=== PATIENT | female | born 1985 | race Caucasian/White ===

== ENCOUNTER 2021-10-16 18:03 | Emergency (ER) | payer BC ==
[2021-10-16] MEDS ORDERED: Sodium Chloride 0.9% 10 ML Syringe FLUSH PRN (18:53)
== END 2021-10-16 20:25 | disposition home or self-care (01) ==
LOC: JD.ED 18:03
DX: E87.6 Hypokalemia (principal); Z86.16 Personal history of COVID-19
CPT/HCPCS: 36415; 80048; 99284

== ENCOUNTER 2021-10-28 14:58 | Emergency (ER) | payer BC ==
[2021-10-28] MEDS ORDERED: Acetaminophen/HYDROcodone 325-5 MG Tab PO ONE (15:55)
[2021-10-28] MEDS ORDERED: Amoxicillin 500 MG Cap PO ONE (15:55)
== END 2021-10-28 16:25 | disposition home or self-care (01) ==
LOC: JD.ED 14:58
DX: S02.5XXB Fracture of tooth (traumatic), initial encounter for open fracture (principal); S00.83XA Contusion of other part of head, initial encounter; Z86.16 Personal history of COVID-19; Z79.899 Other long term (current) drug therapy; W01.0XXA Fall on same level from slipping, tripping and stumbling without subsequent striking against object, initial encounter
CPT/HCPCS: 99283; A9270

== ENCOUNTER 2022-10-01 19:55 | Emergency (ER) | payer BC ==
[2022-10-01] MEDS ORDERED: Potassium Chloride 20 MEQ Tab.ER PO ONE (21:32)
[2022-10-01] MEDS ORDERED: Sodium Chloride 0.9% 1,000 ML IV SCH (22:30)
[2022-10-01] MEDS: Potassium Chloride 10 MEQ in Premix Bag 1 BAG IV SCH ×2 (22:31→23:42)
[2022-10-01] MEDS ORDERED: cefTRIAXone 2 GM in Sodium Chloride 0.9% 100 ML IV ONE (22:53)
[2022-10-02] MEDS: Potassium Chloride 10 MEQ in Premix Bag 1 BAG IV SCH (00:39)
== END 2022-10-02 00:48 ==
LOC: JD.ED 19:55
DX: K70.11 Alcoholic hepatitis with ascites (principal); E87.1 Hypo-osmolality and hyponatremia; E87.6 Hypokalemia; Z86.16 Personal history of COVID-19; Z87.891 Personal history of nicotine dependence
CPT/HCPCS: 36415; 71045; 80053; 81001; 82140; 83605; 83690; 83735; 83930; 85025; 86140; 87040; 93005; 96365; 96366; 96368; 99285; A9270; J0696; J3480; J3490; J7030

== ENCOUNTER 2023-08-19 14:57 | Emergency (ER) | payer BC ==
[2023-08-19 16:37] LABS: APPEARANCE,URINE CLEAR (Clear); BILIRUBIN,URINE NEGATIVE (Negative); COLOR,URINE YELLOW (Yellow); GLUCOSE,URINE NEGATIVE (Negative); KETONES,URINE NEGATIVE (Negative); LEUKOCYTE ESTERASE,URINE NEGATIVE (Negative); NITRITE,URINE NEGATIVE (Negative); OCCULT BLOOD,URINE NEGATIVE (Negative); PROTEIN,URINE NEGATIVE (Negative); UROBILINOGEN,URINE 0.2 (0.2-1.0)
[2023-08-19 16:55] LABS: BACTERIA,URINE FEW /hpf (FEW); MUCUS,URINE FEW /hpf (FEW); RBC,URINE 0-5 /hpf (0-5); SQUAMOUS EPITHELIAL CELLS,UR 0-5 /hpf (0-5); WBC,URINE 0-5 /hpf (0-5)
== END 2023-08-19 17:45 | disposition home or self-care (01) ==
LOC: JD.ED 14:57
DX: S20.211A Contusion of right front wall of thorax, initial encounter (principal); Z86.19 Personal history of other infectious and parasitic diseases; Z86.16 Personal history of COVID-19; Z79.899 Other long term (current) drug therapy; W18.49XA Other slipping, tripping and stumbling without falling, initial encounter; Y93.E1 Activity, personal bathing and showering
CPT/HCPCS: 71101-26-RT; 71101-RT; 81001; 99282; 99283

== ENCOUNTER 2024-03-13 16:36 | Emergency (ER) | payer BC ==
[2024-03-13] MEDS ORDERED: Sodium Chloride 0.9% 10 ML Syringe FLUSH PRN (16:55)
[2024-03-13 17:08] LABS: BASOPHILS ABSOLUTE AUTO 0.1 K/mm3 (0.0-0.2); BASOPHILS PERCENT AUTO 0.3 % (0.0-1.0); EOSINOPHILS ABSOLUTE AUTO 0.3 K/mm3 (0.0-0.4); EOSINOPHILS PERCENT AUTO 1.4 % (0.0-6.0); HEMATOCRIT 38.4 % (37.0-47.0); HEMOGLOBIN 12.2 gm/dl (12.0-16.0); IMMATURE GRAN ABSOLUTE AUTO 0.14 K/mm3 (0.00-0.05); IMMATURE GRAN PERCENT AUTO 0.6 % (0.0-0.4); LYMPHOCYTES ABSOLUTE AUTO 2.3 K/mm3 (1.0-4.8); LYMPHOCYTES PERCENT AUTO 9.9 % (24.0-44.0); MEAN CORPUSCULAR HEMOGLOBIN 33.1 pg (28.0-32.0); MEAN CORPUSCULAR HGB CONC 31.8 g/dl (32.0-36.0); MEAN CORPUSCULAR VOLUME 104.1 fl (83.0-99.0); MEAN PLATELET VOLUME 9.6 fl (9.4-12.3); MONOCYTES ABSOLUTE AUTO 2.3 K/mm3 (0.0-0.8); NEUTROPHILS ABSOLUTE AUTO 17.8 K/mm3 (1.8-7.7); NEUTROPHILS PERCENT AUTO 77.8 % (41.0-71.0); PLATELET COUNT,PLT 409 K/mm3 (150-400); RED BLOOD CELL COUNT 3.69 M/mm3 (4.10-5.30); WHITE BLOOD CELL COUNT,WBC 22.88 K/mm3 (3.9-11.3)
[2024-03-13 17:21] LABS: INR 1.43; PROTHROMBIN TIME 14.8 SECONDS (9.7-12.0)
[2024-03-13 17:26] LABS: LACTIC ACID 1.9 mmol/L (0.4-2.0)
[2024-03-13 17:33] LABS: A/G RATIO 0.4 (1-2); ALANINE AMINOTRANSFERASE,ALT 31 U/L (14-59); ALBUMIN 1.8 g/dl (3.4-5.0); ALKALINE PHOSPHATASE 365 U/L (46-116); ANION GAP 14.4 (5-15); ASPARTATE AMNIOTRANSFERASE,AST 185 U/L (15-37); BILIRUBIN TOTAL 6.6 mg/dL (0.2-1.0); BLOOD UREA NITROGEN,BUN 2 mg/dL (7-18); BUN/CREATININE RATIO 2.9 (14-18); C-REACTIVE PROTEIN 5.66 mg/dL (<0.30); CALCIUM 8.6 mg/dL (8.5-10.1); CARBON DIOXIDE,CO2 23 mEq/L (21-32); CHLORIDE,CL 98 mEq/L (98-107); ESTIMATED GFR 113 mL/min (>60); ETHANOL BLOOD MEDICAL 0.03 gm% (0.00); GLUCOSE RANDOM 107 mg/dL (70-99); LIPASE 19 U/L (16-77); MAGNESIUM 1.7 mg/dL (1.8-2.4); PROTEIN TOTAL,TP 6.2 g/dl (6.4-8.2); SODIUM,NA 132 mEq/L (136-145)
[2024-03-13 17:37] LABS: HCG QUANTITATIVE < 1.0 mIU/mL
[2024-03-13 17:38] LABS: CREATININE 0.7 mg/dL (0.55-1.02); POTASSIUM,K 3.4 mEq/L (3.5-5.1)
[2024-03-13] MEDS: Iopamidol 612 MG/ML 100 ML Bottle IVPUSH ONE (18:44)
[2024-03-13 19:46] LABS: APPEARANCE,URINE CLEAR (Clear); BILIRUBIN,URINE 2+ (Negative); COLOR,URINE AMBER (Yellow); GLUCOSE,URINE NEGATIVE (Negative); KETONES,URINE TRACE (Negative); LEUKOCYTE ESTERASE,URINE NEGATIVE (Negative); NITRITE,URINE NEGATIVE (Negative); OCCULT BLOOD,URINE TRACE-INTACT (Negative); PH,URINE 6.5 (5.0-8.0); PROTEIN,URINE 1+ (Negative); UROBILINOGEN,URINE 0.2 (0.2-1.0)
[2024-03-13 19:55] LABS: BACTERIA,URINE FEW /hpf (FEW); BARBITURATE SCREEN,URINE NEGATIVE (CUTOFF=200); BENZODIAZEPINES SCREEN,URINE PRESUMPTIVE POSITIVE (CUTOFF=150); BUPRENORPHINE SCREEN,URINE NEGATIVE (CUTOFF=10); METHADONE SCREEN, URINE NEGATIVE (CUTOFF=200); METHAMPHETAMINES SCREEN, URINE NEGATIVE (CUTOFF=500); MUCUS,URINE NOT SEEN /hpf (FEW); OXYCODONE SCREEN,URINE NEGATIVE (CUT0FF=100); RBC,URINE 0-5 /hpf (0-5); SQUAMOUS EPITHELIAL CELLS,UR 30-40 /hpf (0-5); THC SCREEN,URINE 20 NG/ML PRESUMPTIVE POSITIVE (CUTOFF=50); WBC,URINE 0-5 /hpf (0-5)
[2024-03-13 19:57] LABS: AMPHETAMINES SCREEN, URINE NEGATIVE (CUTOFF=500)
== END 2024-03-13 19:50 | disposition home or self-care (01) ==
LOC: JD.ED 16:36
DX: K70.31 Alcoholic cirrhosis of liver with ascites (principal); D73.2 Chronic congestive splenomegaly; F10.90 Alcohol use, unspecified, uncomplicated; Z87.891 Personal history of nicotine dependence; Z79.899 Other long term (current) drug therapy
CPT/HCPCS: 36415; 74177; 76700; 80053; 80306; 80307; 81001; 82140; 82248; 83605; 83690; 83735; 83880; 84702; 85025; 85610; 86140; 93005; 99284; Q9967

== ENCOUNTER 2024-03-18 18:16 | Emergency (ER) | payer BC ==
[2024-03-18 19:50] LABS: BASOPHILS PERCENT AUTO 0.2 % (0.0-1.0); EOSINOPHILS ABSOLUTE AUTO 0.2 K/mm3 (0.0-0.4); HEMATOCRIT 33.3 % (37.0-47.0); HEMOGLOBIN 10.6 gm/dl (12.0-16.0); IMMATURE GRAN ABSOLUTE AUTO 0.13 K/mm3 (0.00-0.05); IMMATURE GRAN PERCENT AUTO 0.8 % (0.0-0.4); LYMPHOCYTES ABSOLUTE AUTO 1.7 K/mm3 (1.0-4.8); LYMPHOCYTES PERCENT AUTO 10.3 % (24.0-44.0); MEAN CORPUSCULAR HEMOGLOBIN 32.9 pg (28.0-32.0); MEAN CORPUSCULAR HGB CONC 31.8 g/dl (32.0-36.0); MEAN CORPUSCULAR VOLUME 103.4 fl (83.0-99.0); MEAN PLATELET VOLUME 9.9 fl (9.4-12.3); MONOCYTES ABSOLUTE AUTO 1.9 K/mm3 (0.0-0.8); MONOCYTES PERCENT AUTO 11.5 % (0.0-8.0); NEUTROPHILS ABSOLUTE AUTO 12.7 K/mm3 (1.8-7.7); NEUTROPHILS PERCENT AUTO 76.2 % (41.0-71.0); PLATELET COUNT,PLT 248 K/mm3 (150-400); RED BLOOD CELL COUNT 3.22 M/mm3 (4.10-5.30); WHITE BLOOD CELL COUNT,WBC 16.66 K/mm3 (3.9-11.3)
[2024-03-18 20:10] LABS: INR 1.43; PROTHROMBIN TIME 14.8 SECONDS (9.7-12.0)
[2024-03-18 20:11] LABS: PTT,PARTIAL THROMBOPLSTIN TIME 28.8 SECONDS (21.7-31.4)
[2024-03-18 20:13] LABS: A/G RATIO 0.4 (1-2); ALBUMIN 1.5 g/dl (3.4-5.0); ANION GAP 11.8 (5-15); BILIRUBIN TOTAL 4.9 mg/dL (0.2-1.0); CALCIUM 7.8 mg/dL (8.5-10.1); EST CRCL DRUG DOSING (CG) 65.87 mL/min; POTASSIUM,K 3.8 mEq/L (3.5-5.1)
[2024-03-18 20:16] LABS: PROTEIN TOTAL,TP 5.1 g/dl (6.4-8.2)
== END 2024-03-18 21:47 | disposition home or self-care (01) ==
LOC: JD.ED 18:16
DX: R10.9 Unspecified abdominal pain (principal); Z86.16 Personal history of COVID-19; Z79.899 Other long term (current) drug therapy
CPT/HCPCS: 36415; 80053; 85025; 85610; 85730; 99284